=== PATIENT | female | born 1995 | race Hispanic/Latino ===

== ENCOUNTER 2018-01-29 08:11 | Emergency (ER) | payer SELFPAY ==
[2018-01-29 08:27] VITALS: RESP 18
[2018-01-29] MEDS ORDERED: Lidocaine 1%/Epinephrine 1:100000 30 ml vial IJ STA (08:31)
--- NOTE | 2018-01-29 08:41 | ED PDOC ---
Arrival/HPI - General Chief Complaint: Abnormal Skin Integrity Time Seen by Provider: 01/29/18 08:19 Historian: Patient - History of Present Illness Narrative History of Present Illness (Text): 01/29/18 08:439 A 22 year old female, with no significant past medical history, presents to the emergency department complaining of cyst to tailbone. reports "previous drainage" Patient denies any other complaints at this time. No PMD 01/29/18 13:01 Past Medical History - Provider Review Nursing Documentation Reviewed: Yes - Cardiac Hx Cardiac Disorders: No - Pulmonary Hx Respiratory Disorders: No - Neurological Hx Neurological Disorder: No - HEENT Hx HEENT Disorder: No - Renal Hx Renal Disorder: No - Endocrine/Metabolic Hx Endocrine Disorders: No - Hematological/Oncological Hx Blood Disorders: No - Integumentary Hx Dermatological Disorder: No - Musculoskeletal/Rheumatological Other/Comment: Tailbone Fx - Gastrointestinal Hx Gastrointestinal Disorders: No - Genitourinary/Gynecological Hx Genitourinary Disorders: No Other/Comment: control implent on left upper arm - Psychiatric Hx Psychophysiologic Disorder: No Hx Substance Use: No Family/Social History - Physician Review Nursing Documentation Reviewed: Yes Family/Social History: No Known Family HX Smoking Status: Current Some Days Smoker Hx Alcohol Use: Yes Frequency of alcohol use: Socially Hx Substance Use: No Allergies/Home Meds Allergies/Adverse Reactions: Allergies No Known Allergies Allergy (Verified 01/29/18 08:21) Home Medications: Home Meds Medication Instructions Recorded Confirmed RX: No Known Home Med 01/29/18 01/29/18 Review of Systems - Physician Review All systems were reviewed & negative as marked: Yes - Review of Systems Constitutional: absent: Fevers, Night Sweats Skin: Other (cyst to tailbone) Physical Exam Vital Signs Reviewed: Yes Vital Signs Temp Pulse Resp BP Pulse Ox 01/29/18 08:18 98.2 F 95 H 18 126/78 98 Temperature: Afebrile Blood Pressure: Normal Pulse: Regular Respiratory Rate: Normal Appearance: Positive for: Well-Appearing, Non-Toxic, Comfortable Pain Distress: None Mental Status: Positive for: Alert and Oriented X 3 - Systems Exam Respiratory/Chest: Present: Clear to Auscultation, Good Air Exchange. No: Respiratory Distress, Accessory Muscle Use Cardiovascular: Present: Regular Rate and Rhythm, Normal S1, S2. No: Murmurs Abdomen: No: Tenderness, Distention, Peritoneal Signs Back: Present: Normal Inspection Upper Extremity: Present: Normal Inspection. No: Cyanosis, Edema Lower Extremity: Present: Normal Inspection. No: Edema Neurological: Present: GCS=15, CN II-XII Intact, Speech Normal Skin: Present: Erythematous (superior gluteal fold), Induration (superior gluteal fold) Psychiatric: Present: Alert, Oriented x 3, Normal Insight, Normal Concentration Medical Decision Making ED Course and Treatment: 01/29/18 08:41 Impression: 22 year old female with cyst to tailbone. Physical exam shows erythematous and induration to superior gluteal fold. Plan: -- Lidocaine -- I&D -- Reassess and disposition Progress Notes: 01/29/18 13:02 bedisde us shows abscess. area numbed and drained. no surrouding erythema. no indication for outpt antibiotics. 2 day return for packing removal. - Medication Orders Current Medication Orders: Discontinued Medications Lidocaine/Epinephrine (Lidocaine 1%/Epinephrine 1:[id number] 30 Ml) 10 ml IJ STAT STA Stop: 01/29/18 08:32 Procedures - Incision and Drainage Site: gluetal fold Blade Size: 11 I & D Procedure: sterile dressing applied - Scribe Statement The provider has reviewed the documentation as recorded by the Lolis Burroughs Provider Scribe Attestation: All medical record entries made by the Scribe were at my direction and personally dictated by me. I have reviewed the chart and agree that the record accurately reflects my personal performance of the history, physical exam, medical decision making, and the department course for this patient. I have also personally directed, reviewed, and agree with the discharge instructions and disposition. Disposition/Present on Arrival - Present on Arrival Any Indicators Present on Arrival: No History of DVT/PE: No History of Uncontrolled Diabetes: No Urinary Catheter: No History of Decub. Ulcer: No History Surgical Site Infection Following: None - Disposition Have Diagnosis and Disposition been Completed?: Yes Diagnosis: Abscess Disposition: HOME/ ROUTINE Disposition Time: 09:30 Condition: STABLE Discharge Instructions (ExitCare): Abscess Incision and Drainage Additional Instructions: return in 2 days for reeval and packing change/removal. return immediately with worsening. Referrals: [facility] [Outside] - Follow up with primary [facility] [place] [Outside] - Follow up with primary Forms: [employer] ([place]i)
[2018-01-29 09:35] VITALS: BP 122/79; PULSE 72; TEMP 98.7; O2SAT 100
== END 2018-01-29 09:35 | disposition home or self-care (01) ==
LOC: ED 08:11
DX: L02.31 Cutaneous abscess of buttock (principal)

== ENCOUNTER 2018-01-30 15:46 | Emergency (ER) | payer SELFPAY ==
[2018-01-30 16:18] VITALS: BP 114/76; PULSE 76; RESP 16; TEMP 98.8; O2SAT 96; BMI 33.3
--- NOTE | 2018-01-30 16:51 | ED PDOC ---
Arrival/HPI - General Chief Complaint: Abnormal Skin Integrity Time Seen by Provider: 01/30/18 16:50 Historian: Patient - History of Present Illness Narrative History of Present Illness (Text): 01/30/18 17:02 22yo female with no pmhx who present to ED requesting packing removal from abscess that was incised here yesterday. States she can't tolerate the packing any longer and wants it out, although she understands that it was suppose to be remove tomorrow. Reports pain to the area. She denies fever, chills, nausea, any other complaint. Past Medical History - Provider Review Nursing Documentation Reviewed: Yes - Infectious Disease Hx of Infectious Diseases: None - Cardiac Hx Cardiac Disorders: No - Pulmonary Hx Respiratory Disorders: No - Neurological Hx Neurological Disorder: No - HEENT Hx HEENT Disorder: No - Renal Hx Renal Disorder: No - Endocrine/Metabolic Hx Endocrine Disorders: No - Hematological/Oncological Hx Blood Disorders: No - Integumentary Hx Dermatological Disorder: No - Musculoskeletal/Rheumatological Other/Comment: Tailbone Fx - Gastrointestinal Hx Gastrointestinal Disorders: No - Genitourinary/Gynecological Hx Genitourinary Disorders: No Other/Comment: control implent on left upper arm - Psychiatric Hx Psychophysiologic Disorder: No Hx Substance Use: No Family/Social History - Physician Review Nursing Documentation Reviewed: Yes Family/Social History: Unknown Family HX Smoking Status: Current Some Days Smoker Hx Alcohol Use: Yes Hx Substance Use: No Allergies/Home Meds Allergies/Adverse Reactions: Allergies No Known Allergies Allergy (Verified 01/30/18 16:05) Review of Systems - Physician Review All systems were reviewed & negative as marked: Yes - Review of Systems Constitutional: Normal Eyes: Normal ENT: Normal Respiratory: Normal Cardiovascular: Normal Gastrointestinal: Normal Genitourinary Female: Normal Musculoskeletal: Normal Skin: Other (Packing removal) Neurological: Normal Endocrine: Normal Hemo/Lymphatic: Normal Psychiatric: Normal Physical Exam Vital Signs Reviewed: Yes Vital Signs Temp Pulse Resp BP Pulse Ox 01/30/18 16:05 98.8 F 76 16 114/76 96 Temperature: Afebrile Blood Pressure: Normal Pulse: Regular Respiratory Rate: Normal Appearance: Positive for: Well-Appearing, Non-Toxic, Comfortable Pain Distress: None Mental Status: Positive for: Alert and Oriented X 3 - Systems Exam Head: Present: Atraumatic, Normocephalic Pupils: Present: PERRL Extroacular Muscles: Present: EOMI Conjunctiva: Present: Normal Mouth: Present: Moist Mucous Membranes Neck: Present: Normal Range of Motion Respiratory/Chest: Present: Clear to Auscultation, Good Air Exchange. No: Respiratory Distress, Accessory Muscle Use Cardiovascular: Present: Regular Rate and Rhythm, Normal S1, S2. No: Murmurs Abdomen: No: Tenderness, Distention, Peritoneal Signs Back: Present: Normal Inspection Upper Extremity: Present: Normal Inspection. No: Cyanosis, Edema Lower Extremity: Present: Normal Inspection. No: Edema Neurological: Present: GCS=15, CN II-XII Intact, Speech Normal Skin: Present: Warm, Dry, Normal Color, Other (Packing noted in place to the sacrum). No: Rashes Psychiatric: Present: Alert, Oriented x 3, Normal Insight, Normal Concentration Medical Decision Making ED Course and Treatment: 01/30/18 17:07 Packing removed. Draining noted. No erythema. No crepitus. Dressed. Pt advised to keep applying warm compress to area She requested antibiotics and was placed on Keflex Referred to her PMD Advised TRT ED for any new or worsening symptoms Disposition/Present on Arrival - Present on Arrival Any Indicators Present on Arrival: No History of DVT/PE: No History of Uncontrolled Diabetes: No Urinary Catheter: No History of Decub. Ulcer: No History Surgical Site Infection Following: None - Disposition Have Diagnosis and Disposition been Completed?: Yes Diagnosis: Abscess packing removal Disposition: HOME/ ROUTINE Disposition Time: 16:50 Patient Plan: Discharge Patient Problems: Current Active Problems Problem Status Onset Abscess packing removal Acute Condition: STABLE Discharge Instructions (ExitCare): Wound Care (DC) Additional Instructions: Follow up with your Doctor Return to ED for any new symbols Prescriptions: Cephalexin [cephalexin] 500 mg PO TID #21 cap Referrals: Usha Davey MD [Medical Doctor] - Follow up with primary Forms: [employer] (Bul[place]ian)
== END 2018-01-30 17:53 | disposition home or self-care (01) ==
LOC: ED 15:46
DX: Z48.01 Encounter for change or removal of surgical wound dressing (principal)